=== PATIENT | male | born 1990 | race Caucasian/White ===

== ENCOUNTER 2019-11-15 12:02 | Emergency (ER) | payer OTHER ==
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
[2019-11-15] MEDS ORDERED: HYDROCODONE/ACETAMINOPHEN 5-325 MG TABLET PO ONE (18:27)
[2019-11-15] MEDS ORDERED: DIAZEPAM 2 MG TABLET PO ONE (18:28)
[2019-11-15] MEDS ORDERED: IBUPROFEN 600 MG TABLET PO ONE (18:28)
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
[2019-11-15 19:29] VITALS: BP 113/75
== END 2019-11-15 19:31 | disposition home or self-care (01) ==
LOC: ER 12:02
DX: S09.90XA Unspecified injury of head, initial encounter (principal); S16.1XXA Strain of muscle, fascia and tendon at neck level, initial encounter; S40.012A Contusion of left shoulder, initial encounter; S90.02XA Contusion of left ankle, initial encounter; R51 Headache; M25.572 Pain in left ankle and joints of left foot; M25.512 Pain in left shoulder; V89.2XXA Person injured in unspecified motor-vehicle accident, traffic, initial encounter
CPT/HCPCS: 99284; 73610; 73030; 70450; 72125; J3490